=== PATIENT | male | born 1965 ===

== ENCOUNTER 2023-03-13 09:21 | Inpatient (IN) | payer SELFPAY ==
[2023-03-13] MEDS ORDERED: Aspirin 81 MG Tab.Chew PO ONE (09:42)
[2023-03-13] MEDS ORDERED: Sodium Chloride 0.9% 2.5 ML Syringe FLUSH PRN (09:42)
[2023-03-13] MEDS ORDERED: Sodium Chloride 0.9% 10 ML Syringe FLUSH PRN (09:42)
[2023-03-13] MEDS ORDERED: Diltiazem 25 MG/5 ML SDV IVPUSH ONE ×3 (09:45→12:38)
[2023-03-13] MEDS ORDERED: Furosemide 40 MG/4 ML VIAL IVPUSH ONE (09:45)
[2023-03-13 09:52] LABS: BASOPHILS ABSOLUTE AUTO 0.05 K/uL (0.00-0.20); BASOPHILS PERCENT AUTO 0.8 % (0.0-1.0); EOSINOPHILS ABSOLUTE AUTO 0.24 K/uL (0.00-0.45); EOSINOPHILS PERCENT AUTO 3.9 % (0.0-6.0); HEMATOCRIT 38.2 % (42.0-52.0); HEMOGLOBIN 11.9 g/dL (14.0-18.0); IMMATURE GRAN ABSOLUTE AUTO 0.02 K/uL (0.00-0.05); IMMATURE GRAN PERCENT AUTO 0.3 % (0.0-0.4); LYMPHOCYTES ABSOLUTE AUTO 1.29 K/uL (1.00-4.80); LYMPHOCYTES PERCENT AUTO 20.8 % (24.0-44.0); MEAN CORPUSCULAR HEMOGLOBIN 26.7 pg (28.0-32.0); MEAN CORPUSCULAR HGB CONC 31.2 g/dL (32.0-36.0); MEAN CORPUSCULAR VOLUME 85.8 fL (83.0-99.0); MEAN PLATELET VOLUME 10.2 fL (9.4-12.4); MONOCYTES ABSOLUTE AUTO 0.63 K/uL (0.00-0.80); MONOCYTES PERCENT AUTO 10.1 % (0.0-8.0); NEUTROPHILS ABSOLUTE AUTO 3.98 K/uL (1.80-7.70); NEUTROPHILS PERCENT AUTO 64.1 % (41.0-71.0); PLATELET COUNT,PLT 229 K/uL (150-400); RED BLOOD CELL COUNT 4.45 M/uL (4.52-5.90); WHITE BLOOD CELL COUNT,WBC 6.21 K/uL (3.9-11.3)
[2023-03-13 09:53] LABS: APPEARANCE,URINE CLEAR; BILIRUBIN,URINE NEGATIVE (NEGATIVE); COLOR,URINE YELLOW; GLUCOSE,URINE NEGATIVE (NEGATIVE); KETONES,URINE NEGATIVE (NEGATIVE); LEUKOCYTE ESTERASE,URINE NEGATIVE (NEGATIVE); NITRITE,URINE NEGATIVE (NEGATIVE); OCCULT BLOOD,URINE NEGATIVE (NEGATIVE); PROTEIN,URINE 100 mg/dL (NEGATIVE)
[2023-03-13 10:06] LABS: AMPHETAMINES SCREEN, URINE NEGATIVE (CUTOFF=500); BARBITURATE SCREEN,URINE NEGATIVE (CUTOFF=200); BENZODIAZEPINES SCREEN,URINE NEGATIVE (CUTOFF=150); BUPRENORPHINE SCREEN,URINE NEGATIVE (CUTOFF=10); METHADONE SCREEN, URINE NEGATIVE (CUTOFF=200); METHAMPHETAMINES SCREEN, URINE NEGATIVE (CUTOFF=500); OXYCODONE SCREEN,URINE NEGATIVE (CUT0FF=100); PCP SCREEN,URINE NEGATIVE (CUTOFF=25); THC SCREEN,URINE 20 NG/ML NEGATIVE (CUTOFF=50)
[2023-03-13 10:11] LABS: INR 1.17 (0.86-1.11); PTT,PARTIAL THROMBOPLSTIN TIME 25.3 SEC (23.9-30.7)
[2023-03-13 10:12] LABS: BACTERIA,URINE NOT SEEN (NEGATIVE); EPITHELIAL CELLS,URINE RARE (NONE-FEW); MUCUS,URINE LIGHT (NONE-MOD); RBC,URINE 0-1 (0-2/HPF); WBC,URINE 0-1 (0-5/HPF)
[2023-03-13 10:26] LABS: A/G RATIO 0.6 (0.9-1.6); ALANINE AMINOTRANSFERASE,ALT 37 IU/L (14-63); ALBUMIN 2.6 g/dL (3.4-5.0); ALKALINE PHOSPHATASE 74 U/L (46-116); ASPARTATE AMNIOTRANSFERASE,AST 28 IU/L (15-37); BILIRUBIN TOTAL 0.7 mg/dL (0.2-1.0); BLOOD UREA NITROGEN,BUN 13 mg/dL (7.0-18.0); CALCIUM 8.6 mg/dL (8.5-10.1); CARBON DIOXIDE,CO2 29.5 mmol/L (21.0-32.0); CHLORIDE,CL 106 mmol/L (98-107); CREATININE 1.5 mg/dL (0.8-1.3); EST CRCL DRUG DOSING (CG) 68.31 mL/min; GLUCOSE RANDOM 71 mg/dL (74-106); MAGNESIUM 1.9 mg/dL (1.8-2.4); PROTEIN TOTAL,TP 6.8 g/dL (6.4-8.2); SODIUM,NA 141 mmol/L (136-148); TSH ULTRASENSITIVE 1.77 uIU/mL (0.36-3.74)
[2023-03-13 10:31] LABS: ESTIMATED GFR 55 mL/min (>60); ETHANOL BLOOD MEDICAL < 3.0 mg/dL
[2023-03-13] MEDS ORDERED: Diltiazem 100 MG in Sodium Chloride 0.9% 100 ML IV SCH (11:15)
[2023-03-13] MEDS ORDERED: Ondansetron 4 MG/2 ML SDV IVPUSH PRN (11:33)
[2023-03-13] MEDS ORDERED: Albuterol/Ipratropium 3.0-0.5 MG/3 ML Neb Soln NEB PRN (11:33)
[2023-03-13] MEDS ORDERED: Acetaminophen 325 MG Tab PO PRN (11:33)
[2023-03-13] MEDS ORDERED: ALBUTEROL INH PRN (11:52)
[2023-03-13] MEDS ORDERED: Albuterol 8 GM Inhaler INH PRN (12:12)
[2023-03-13 12:50] LABS: HEMOGLOBIN A1C 5.9 %
[2023-03-13] MEDS: Metoprolol Tartrate 25 MG Tab PO SCH (15:20)
[2023-03-13] MEDS: Apixaban 5 MG Tab PO SCH ×2 (15:20→20:14)
[2023-03-13] MEDS: Pantoprazole 40 MG in Sodium Chloride 0.9% 10 ML IVPUSH SCH (15:22)
[2023-03-13] MEDS: Diltiazem 100 MG in Sodium Chloride 0.9% 100 ML IV SCH (19:59)
[2023-03-13] MEDS: Furosemide 40 MG/4 ML VIAL IVPUSH SCH (20:14)
[2023-03-14] MEDS: Diltiazem 100 MG in Sodium Chloride 0.9% 100 ML IV SCH ×4 (02:33→22:49)
[2023-03-14] MEDS: Metoprolol Tartrate 25 MG Tab PO SCH ×2 (02:55→20:26)
[2023-03-14 05:38] LABS: BASOPHILS ABSOLUTE AUTO 0.05 K/uL (0.00-0.20); BASOPHILS PERCENT AUTO 0.9 % (0.0-1.0); EOSINOPHILS ABSOLUTE AUTO 0.39 K/uL (0.00-0.45); EOSINOPHILS PERCENT AUTO 6.9 % (0.0-6.0); HEMATOCRIT 36.4 % (42.0-52.0); HEMOGLOBIN 11.5 g/dL (14.0-18.0); IMMATURE GRAN ABSOLUTE AUTO 0.02 K/uL (0.00-0.05); IMMATURE GRAN PERCENT AUTO 0.4 % (0.0-0.4); LYMPHOCYTES ABSOLUTE AUTO 1.11 K/uL (1.00-4.80); LYMPHOCYTES PERCENT AUTO 19.7 % (24.0-44.0); MEAN CORPUSCULAR HEMOGLOBIN 26.7 pg (28.0-32.0); MEAN CORPUSCULAR HGB CONC 31.6 g/dL (32.0-36.0); MEAN CORPUSCULAR VOLUME 84.7 fL (83.0-99.0); MEAN PLATELET VOLUME 10.7 fL (9.4-12.4); MONOCYTES PERCENT AUTO 10.7 % (0.0-8.0); NEUTROPHILS ABSOLUTE AUTO 3.46 K/uL (1.80-7.70); NEUTROPHILS PERCENT AUTO 61.4 % (41.0-71.0); PLATELET COUNT,PLT 226 K/uL (150-400); WHITE BLOOD CELL COUNT,WBC 5.63 K/uL (3.9-11.3)
[2023-03-14 05:58] LABS: CALCIUM 8.5 mg/dL (8.5-10.1); CARBON DIOXIDE,CO2 28.8 mmol/L (21.0-32.0); CREATININE 1.4 mg/dL (0.8-1.3); EST CRCL DRUG DOSING (CG) 73.19 mL/min; POTASSIUM,K 3.7 mmol/L (3.5-5.1)
[2023-03-14] MEDS ORDERED: Metoprolol Tartrate 25 MG Tab PO ONE (08:44)
[2023-03-14] MEDS: Furosemide 40 MG/4 ML VIAL IVPUSH SCH ×2 (08:51→13:59)
[2023-03-14] MEDS: Apixaban 5 MG Tab PO SCH ×2 (08:51→20:26)
[2023-03-14] MEDS: FLUTICASONE PROPION INH SCH ×3 (09:00→20:34)
[2023-03-14] MEDS: SALMETEROL INH SCH ×3 (09:00→20:34)
[2023-03-14] MEDS: Pantoprazole 40 MG in Sodium Chloride 0.9% 10 ML IVPUSH SCH (11:52)
[2023-03-14] MEDS: ALBUTEROL INH PRN (20:35)
[2023-03-14] MEDS ORDERED: Metoprolol Tartrate 50 MG Tab PO SCH (21:00)
[2023-03-15 06:45] LABS: BASOPHILS ABSOLUTE AUTO 0.05 K/uL (0.00-0.20); BASOPHILS PERCENT AUTO 0.9 % (0.0-1.0); EOSINOPHILS ABSOLUTE AUTO 0.44 K/uL (0.00-0.45); EOSINOPHILS PERCENT AUTO 7.9 % (0.0-6.0); HEMATOCRIT 37.7 % (42.0-52.0); HEMOGLOBIN 12.1 g/dL (14.0-18.0); IMMATURE GRAN ABSOLUTE AUTO 0.01 K/uL (0.00-0.05); IMMATURE GRAN PERCENT AUTO 0.2 % (0.0-0.4); LYMPHOCYTES ABSOLUTE AUTO 1.34 K/uL (1.00-4.80); LYMPHOCYTES PERCENT AUTO 23.9 % (24.0-44.0); MEAN CORPUSCULAR HEMOGLOBIN 27.3 pg (28.0-32.0); MEAN CORPUSCULAR HGB CONC 32.1 g/dL (32.0-36.0); MEAN CORPUSCULAR VOLUME 84.9 fL (83.0-99.0); MEAN PLATELET VOLUME 10.6 fL (9.4-12.4); MONOCYTES ABSOLUTE AUTO 0.51 K/uL (0.00-0.80); MONOCYTES PERCENT AUTO 9.1 % (0.0-8.0); NEUTROPHILS ABSOLUTE AUTO 3.25 K/uL (1.80-7.70); PLATELET COUNT,PLT 227 K/uL (150-400); RED BLOOD CELL COUNT 4.44 M/uL (4.52-5.90)
[2023-03-15 07:00] LABS: CARBON DIOXIDE,CO2 31.4 mmol/L (21.0-32.0); CREATININE 1.4 mg/dL (0.8-1.3); EST CRCL DRUG DOSING (CG) 73.19 mL/min; POTASSIUM,K 3.6 mmol/L (3.5-5.1)
[2023-03-15] MEDS: Diltiazem 100 MG in Sodium Chloride 0.9% 100 ML IV SCH ×2 (08:03→18:34)
[2023-03-15] MEDS: Furosemide 40 MG/4 ML VIAL IVPUSH SCH ×2 (08:04→13:44)
[2023-03-15] MEDS: Apixaban 5 MG Tab PO SCH ×2 (08:05→19:59)
[2023-03-15] MEDS: Metoprolol Tartrate 25 MG Tab PO SCH (08:06)
[2023-03-15] MEDS: FLUTICASONE PROPION INH SCH ×2 (08:08→10:55)
[2023-03-15] MEDS: SALMETEROL INH SCH ×2 (08:08→10:55)
[2023-03-15] MEDS ORDERED: Magnesium Sulfate/Water 2 GM in Premix Bag 1 BAG IV ONE (08:58)
[2023-03-15] MEDS ORDERED: Metoprolol Tartrate 25 MG Tab PO ONE (09:15)
[2023-03-15] MEDS: Potassium Chloride 10 MEQ in Premix Bag 1 BAG IV SCH ×4 (09:37→13:44)
[2023-03-15] MEDS: ALBUTEROL INH PRN (10:56)
[2023-03-15] MEDS: Pantoprazole 40 MG in Sodium Chloride 0.9% 10 ML IVPUSH SCH (10:57)
[2023-03-15] MEDS: Metoprolol Tartrate 50 MG Tab PO SCH (19:59)
[2023-03-16 06:33] LABS: BASOPHILS ABSOLUTE AUTO 0.08 K/uL (0.00-0.20); BASOPHILS PERCENT AUTO 1.3 % (0.0-1.0); EOSINOPHILS ABSOLUTE AUTO 0.45 K/uL (0.00-0.45); EOSINOPHILS PERCENT AUTO 7.4 % (0.0-6.0); HEMATOCRIT 39.5 % (42.0-52.0); HEMOGLOBIN 12.5 g/dL (14.0-18.0); IMMATURE GRAN ABSOLUTE AUTO 0.02 K/uL (0.00-0.05); IMMATURE GRAN PERCENT AUTO 0.3 % (0.0-0.4); LYMPHOCYTES ABSOLUTE AUTO 1.37 K/uL (1.00-4.80); LYMPHOCYTES PERCENT AUTO 22.5 % (24.0-44.0); MEAN CORPUSCULAR HGB CONC 31.6 g/dL (32.0-36.0); MEAN CORPUSCULAR VOLUME 85.3 fL (83.0-99.0); MEAN PLATELET VOLUME 10.6 fL (9.4-12.4); MONOCYTES ABSOLUTE AUTO 0.57 K/uL (0.00-0.80); MONOCYTES PERCENT AUTO 9.3 % (0.0-8.0); NEUTROPHILS ABSOLUTE AUTO 3.61 K/uL (1.80-7.70); NEUTROPHILS PERCENT AUTO 59.2 % (41.0-71.0); PLATELET COUNT,PLT 233 K/uL (150-400); RED BLOOD CELL COUNT 4.63 M/uL (4.52-5.90)
[2023-03-16 06:59] LABS: CALCIUM 8.7 mg/dL (8.5-10.1); CARBON DIOXIDE,CO2 32.2 mmol/L (21.0-32.0); CREATININE 1.5 mg/dL (0.8-1.3); EST CRCL DRUG DOSING (CG) 68.31 mL/min; POTASSIUM,K 3.6 mmol/L (3.5-5.1)
[2023-03-16] MEDS: Apixaban 5 MG Tab PO SCH ×2 (08:29→20:19)
[2023-03-16] MEDS: Metoprolol Tartrate 50 MG Tab PO SCH ×2 (08:29→20:19)
[2023-03-16] MEDS: Furosemide 40 MG/4 ML VIAL IVPUSH SCH ×2 (08:29→15:10)
[2023-03-16] MEDS: Pantoprazole 40 MG Tab.CR PO SCH (08:29)
[2023-03-16] MEDS: FLUTICASONE PROPION INH SCH (08:35)
[2023-03-16] MEDS: SALMETEROL INH SCH (08:35)
[2023-03-16] MEDS: Empagliflozin 10 MG Tab PO SCH (09:34)
[2023-03-16] MEDS ORDERED: Potassium Chloride 20 MEQ Tab.ER PO ONE (09:46)
[2023-03-16] MEDS: Diltiazem 100 MG in Sodium Chloride 0.9% 100 ML IV SCH (10:26)
[2023-03-16] MEDS: ALBUTEROL INH PRN ×2 (11:39→11:41)
[2023-03-16] MEDS ORDERED: Digoxin 500 MCG/2 ML Amp IVPUSH ONE ×2 (11:51→18:00)
[2023-03-17 07:05] LABS: BASOPHILS ABSOLUTE AUTO 0.04 K/uL (0.00-0.20); BASOPHILS PERCENT AUTO 0.8 % (0.0-1.0); EOSINOPHILS ABSOLUTE AUTO 0.42 K/uL (0.00-0.45); HEMATOCRIT 41.7 % (42.0-52.0); HEMOGLOBIN 12.8 g/dL (14.0-18.0); IMMATURE GRAN ABSOLUTE AUTO 0.02 K/uL (0.00-0.05); IMMATURE GRAN PERCENT AUTO 0.4 % (0.0-0.4); LYMPHOCYTES ABSOLUTE AUTO 1.18 K/uL (1.00-4.80); LYMPHOCYTES PERCENT AUTO 22.5 % (24.0-44.0); MEAN CORPUSCULAR HEMOGLOBIN 26.1 pg (28.0-32.0); MEAN CORPUSCULAR HGB CONC 30.7 g/dL (32.0-36.0); MEAN CORPUSCULAR VOLUME 85.1 fL (83.0-99.0); MEAN PLATELET VOLUME 10.3 fL (9.4-12.4); MONOCYTES ABSOLUTE AUTO 0.52 K/uL (0.00-0.80); MONOCYTES PERCENT AUTO 9.9 % (0.0-8.0); NEUTROPHILS ABSOLUTE AUTO 3.07 K/uL (1.80-7.70); NEUTROPHILS PERCENT AUTO 58.4 % (41.0-71.0); PLATELET COUNT,PLT 240 K/uL (150-400); WHITE BLOOD CELL COUNT,WBC 5.25 K/uL (3.9-11.3)
[2023-03-17] MEDS: Diltiazem 100 MG in Sodium Chloride 0.9% 100 ML IV SCH (07:18)
[2023-03-17] MEDS: Furosemide 40 MG/4 ML VIAL IVPUSH SCH ×2 (07:20→15:30)
[2023-03-17 07:28] LABS: CARBON DIOXIDE,CO2 32.5 mmol/L (21.0-32.0); CREATININE 1.5 mg/dL (0.8-1.3); DIGOXIN 0.5 ng/mL (0.9-2.0); EST CRCL DRUG DOSING (CG) 68.31 mL/min; POTASSIUM,K 3.7 mmol/L (3.5-5.1)
[2023-03-17] MEDS: Digoxin 500 MCG/2 ML Amp IVPUSH SCH (09:41)
[2023-03-17] MEDS: Pantoprazole 40 MG Tab.CR PO SCH (09:41)
[2023-03-17] MEDS: Metoprolol Succinate 100 MG Tab.ER PO SCH (09:42)
[2023-03-17] MEDS: Empagliflozin 10 MG Tab PO SCH (09:42)
[2023-03-17] MEDS: Apixaban 5 MG Tab PO SCH ×2 (09:42→20:08)
[2023-03-17] MEDS: SALMETEROL INH SCH (09:43)
[2023-03-17] MEDS: FLUTICASONE PROPION INH SCH (09:43)
[2023-03-17] MEDS: Metoprolol Tartrate 50 MG Tab PO SCH (09:46)
[2023-03-18 06:32] LABS: BASOPHILS ABSOLUTE AUTO 0.06 K/uL (0.00-0.20); EOSINOPHILS ABSOLUTE AUTO 0.47 K/uL (0.00-0.45); EOSINOPHILS PERCENT AUTO 7.9 % (0.0-6.0); HEMOGLOBIN 13.9 g/dL (14.0-18.0); IMMATURE GRAN ABSOLUTE AUTO 0.02 K/uL (0.00-0.05); IMMATURE GRAN PERCENT AUTO 0.3 % (0.0-0.4); LYMPHOCYTES ABSOLUTE AUTO 1.52 K/uL (1.00-4.80); LYMPHOCYTES PERCENT AUTO 25.6 % (24.0-44.0); MEAN CORPUSCULAR HEMOGLOBIN 26.6 pg (28.0-32.0); MEAN CORPUSCULAR HGB CONC 31.6 g/dL (32.0-36.0); MEAN CORPUSCULAR VOLUME 84.1 fL (83.0-99.0); MEAN PLATELET VOLUME 10.7 fL (9.4-12.4); MONOCYTES ABSOLUTE AUTO 0.62 K/uL (0.00-0.80); MONOCYTES PERCENT AUTO 10.4 % (0.0-8.0); NEUTROPHILS ABSOLUTE AUTO 3.25 K/uL (1.80-7.70); NEUTROPHILS PERCENT AUTO 54.8 % (41.0-71.0); PLATELET COUNT,PLT 251 K/uL (150-400); RED BLOOD CELL COUNT 5.23 M/uL (4.52-5.90); WHITE BLOOD CELL COUNT,WBC 5.94 K/uL (3.9-11.3)
[2023-03-18 06:46] LABS: CALCIUM 9.1 mg/dL (8.5-10.1); CARBON DIOXIDE,CO2 32.8 mmol/L (21.0-32.0); CREATININE 1.5 mg/dL (0.8-1.3); EST CRCL DRUG DOSING (CG) 68.31 mL/min; POTASSIUM,K 3.7 mmol/L (3.5-5.1)
[2023-03-18] MEDS: Furosemide 40 MG/4 ML VIAL IVPUSH SCH ×2 (09:10→14:16)
[2023-03-18] MEDS: Digoxin 500 MCG/2 ML Amp IVPUSH SCH (09:11)
[2023-03-18] MEDS: Empagliflozin 10 MG Tab PO SCH (09:12)
[2023-03-18] MEDS: Metoprolol Succinate 100 MG Tab.ER PO SCH (09:12)
[2023-03-18] MEDS: Apixaban 5 MG Tab PO SCH ×2 (09:12→20:58)
[2023-03-18] MEDS: Pantoprazole 40 MG Tab.CR PO SCH (09:12)
[2023-03-18] MEDS: SALMETEROL INH SCH (09:13)
[2023-03-18] MEDS: FLUTICASONE PROPION INH SCH (09:13)
[2023-03-18] MEDS ORDERED: Metoprolol Succinate 100 MG Tab.ER PO ONE (10:05)
[2023-03-18] MEDS ORDERED: Potassium Chloride 20 MEQ Tab.ER PO ONE (12:08)
[2023-03-19 06:16] LABS: BASOPHILS ABSOLUTE AUTO 0.07 K/uL (0.00-0.20); BASOPHILS PERCENT AUTO 1.3 % (0.0-1.0); EOSINOPHILS PERCENT AUTO 7.4 % (0.0-6.0); HEMATOCRIT 44.8 % (42.0-52.0); HEMOGLOBIN 14.3 g/dL (14.0-18.0); IMMATURE GRAN ABSOLUTE AUTO 0.02 K/uL (0.00-0.05); IMMATURE GRAN PERCENT AUTO 0.4 % (0.0-0.4); LYMPHOCYTES ABSOLUTE AUTO 1.44 K/uL (1.00-4.80); LYMPHOCYTES PERCENT AUTO 26.5 % (24.0-44.0); MEAN CORPUSCULAR HEMOGLOBIN 26.8 pg (28.0-32.0); MEAN CORPUSCULAR HGB CONC 31.9 g/dL (32.0-36.0); MEAN CORPUSCULAR VOLUME 83.9 fL (83.0-99.0); MEAN PLATELET VOLUME 10.3 fL (9.4-12.4); MONOCYTES ABSOLUTE AUTO 0.58 K/uL (0.00-0.80); MONOCYTES PERCENT AUTO 10.7 % (0.0-8.0); NEUTROPHILS ABSOLUTE AUTO 2.93 K/uL (1.80-7.70); NEUTROPHILS PERCENT AUTO 53.7 % (41.0-71.0); PLATELET COUNT,PLT 252 K/uL (150-400); RED BLOOD CELL COUNT 5.34 M/uL (4.52-5.90); WHITE BLOOD CELL COUNT,WBC 5.44 K/uL (3.9-11.3)
[2023-03-19 06:32] LABS: CALCIUM 8.9 mg/dL (8.5-10.1); CARBON DIOXIDE,CO2 30.4 mmol/L (21.0-32.0); CREATININE 1.6 mg/dL (0.8-1.3); EST CRCL DRUG DOSING (CG) 64.05 mL/min; POTASSIUM,K 3.8 mmol/L (3.5-5.1)
[2023-03-19] MEDS: Furosemide 40 MG/4 ML VIAL IVPUSH SCH (08:47)
[2023-03-19] MEDS: Empagliflozin 10 MG Tab PO SCH (08:48)
[2023-03-19] MEDS: Apixaban 5 MG Tab PO SCH (08:48)
[2023-03-19] MEDS: Pantoprazole 40 MG Tab.CR PO SCH (08:48)
[2023-03-19] MEDS: SALMETEROL INH SCH ×2 (08:50→08:56)
[2023-03-19] MEDS: FLUTICASONE PROPION INH SCH ×2 (08:50→08:56)
[2023-03-19] MEDS ORDERED: Metoprolol Succinate 100 MG Tab.ER PO SCH (09:00)
[2023-03-19] MEDS: Digoxin 500 MCG/2 ML Amp IVPUSH SCH (09:26)
[2023-03-20] MEDS ORDERED: Metoprolol Succinate 100 MG Tab.ER PO SCH (09:00)
== END 2023-03-19 12:50 | disposition home or self-care (01) | DRG 309 ==
LOC: MW.ED 09:21 → MW.MS 11:12 → MW.ICU 12:35
PROVIDERS: ADMIT Internal Medicine; ATTEND Internal Medicine
DX: I48.20 Chronic atrial fibrillation, unspecified (principal); Z68.41 Body mass index [BMI] 40.0-44.9, adult; G47.33 Obstructive sleep apnea (adult) (pediatric); J45.909 Unspecified asthma, uncomplicated; I11.0 Hypertensive heart disease with heart failure; I50.9 Heart failure, unspecified; E66.01 Morbid (severe) obesity due to excess calories; Z79.01 Long term (current) use of anticoagulants; Z79.899 Other long term (current) drug therapy
CPT/HCPCS: 36415; 71045; 71045-26; 80048; 80053; 80061; 80162; 80305-QW; 80307; 81001; 83036; 83735; 83880; 84443; 84484; 85025; 85610; 85730; 93005; 93010; 93306; 96374; 96375; 99284; 99285-25; A9270-GY; C9113; J1160; J1940; J3475; J3480; J3490